=== PATIENT | female | born 1990 | race Caucasian/White ===

== ENCOUNTER 2024-01-13 00:18 | Day surgery (SDC) | payer OTHER, SELFPAY ==
[2024-01-10 11:44] VITALS: BMI 30.2
--- NOTE | 2024-01-10 11:50 | PC.NURSE ---
Report to the Outpatient Waiting Room, entrance under the green pavilion located off [facility], at time _0830_ on date _[id number]_. Planned Procedure Time: _1030_.? Time changes happen often and if your time is changed the preop area will call you the afternoon before. - You and your visitor will be asked to self-screen and do not enter if you have any COVID symptoms. Please call surgeon if you need to reschedule. - A mask is optional within the hospital at this time. Patients may have clear liquids (water, carbonated beverages, clear teas, apple juice) until 3 hours prior to surgery with a maximum of 20 ounces. - No food from midnight until time of surgery and no smoking Take only the following medications with a SIP of water on the morning of surgery: ____Escitalopram, Levothyroxine and if needed Lorazepam. DO NOT STOP ANY OF YOUR OTHER PRESCRIPTION MEDICATIONS PRIOR TO SURGERY EXCEPT THE FOLLOWING Medications to discontinue per physician None Please no make-up, nail cymro, hairspray, perfume, deodorant, or body powder the day of surgery.? No jewelry (including any body piercings) or valuables the day of surgery, leave them at home.? Please take a shower or bath the night before, or the morning of, surgery with an antibacterial soap.? Wear comfortable, loose fitting clothing.? - Jewelry must be removed prior to entering the operating room.? Rings and piercings that are not removed may be cut off. - The hospital will not accept responsibility for valuables.? - Please leave all valuables, including medications, at home the day of surgery. If you are going home after surgery, a licensed double bottom driver must drive you home.? - NO public transportation without another adult if you receive anesthesia. - We recommend that an adult stay with you for 24 hours following discharge. - We also recommend that you do not drive, make important decision, drink alcoholic beverages, or take any drugs that were not prescribed by your health care provider for at least 24 hours after your discharge time. Follow any additional instructions given to you from your surgeon. Telephone instructions given to _Kimberly_and asked if any additional questions and then verbalized understanding. Patient advised to call surgeon office or pre surgery nurse liaison [phone] if any additional questions.
[2024-01-13] VITALS (8 sets, daily range): BP systolic 120–130; BP diastolic 60–88; PULSE 62–110; RESP 12–20; O2SAT 96–100
[2024-01-13] MEDS: ACETAMINOPHEN 500 MG TABLET 1000 MG PO (09:00)
[2024-01-13] MEDS: KETOROLAC 15 MG/ML VIAL (*BKC) IV PUSH (09:15)
[2024-01-13] MEDS: LACTATED RINGERS 1,000 ML 30 ML IV CONT ×2 (09:30→11:00)
--- NOTE | 2024-01-13 09:31 | WPDHPUPDATE1 ---
History and Physical Update Update Date/Time: 01/13/24 09:31 History and Physical has been reviewed, including an updated exam of the patient. There are NO changes in the patient's condition. Risks, benefits, and alternatives have been discussed and questions answered. Patient agrees to proceed with procedure.
--- NOTE | 2024-01-13 09:44 | P.PNAN_ITS ---
Anes - Initial Pre Proc Eval Procedure: Operation Date: 01/13/24 10:30 Proposed Procedures p Hysteroscopy, Adriana Endometrial Ablation, Laparoscopic Bilateral Salpingectomy - Yamil Ruiz MD Date/Time: 01/13/24 09:44 Surgeon: Yamil Ruiz MD Pre Op Diagnosis: menorrhagia, sterilization Patient Data Age: 33 Gender: F Height: 1.57 m Weight: 75.3 kg Allergies Allergy/AdvReac Type Severity Reaction Status Date / Time No Known Allergies Allergy Verified 01/13/24 09:19 Home Medications Medication Instructions Recorded Confirmed Type cetirizine 10 mg tablet (All Day 10 mg PO DAILY 04/19/23 01/13/24 History Allergy (cetirizine)) levothyroxine 150 mcg capsule 150 mcg PO DAILY 04/19/23 01/13/24 History lorazepam 0.5 mg tablet 0.5 mg PO DAILY PRN Anxiety 04/19/23 01/13/24 History norethindrone acetate 1 mg-ethinyl 1 tablet PO DAILY 04/19/23 01/13/24 History estradiol 20 mcg tablet (Loestrin) phentermine 30 mg capsule 30 mg PO DAILY 04/19/23 01/13/24 History escitalopram oxalate 10 mg tablet 10 mg PO DAILY 01/10/24 01/13/24 History Patient hx anesthesia problems: none Family hx anesthesia problems: none Results Review: All pre-operative results and documents have been reviewed as part of the pre- operative evaluation. [facility] Past Medical History Medical History Anxiety Endometriosis Thyroid dysfunction Surgical History Surgical History History of cholecystectomy Hx of laparoscopy (~2013) endometriosis Social History Social History Smoking status: Never smoker Alcohol intake: current Substance use: never Lack of Transportation: No Lack of Food: Never True Current Housing: I Have Housing Concerned About Future Housing: No Difficulty Paying Gas/Electric Bills: No Difficulty Paying for Meds: No Currently Unemployed: No Living arrangements: with family Gender identity (if verbalized by the patient): Female Sexual Orientation (if Verbalized by the Patient): Straight or Heterosexual Spiritual care concerns: No Anes - Eval Final PreProcedure Day of Procedure 01/13/24 09:44 Patient weight: obese Heart: regular rate and rhythm Lungs: clear to auscultation Airway: Mallampati scale class II Neurological: alert and oriented Last oral intake: >/= 8 hours ASA classification: II Emergent: no Anesthetic plan: proceed Anesthesia type and monitoring: general ETT and standard monitoring Results Review: All pre-operative results and documents have been reviewed as part of the pre- operative evaluation. Informed Consent: The patient's anesthetic plan and its attendant risks and benefits were discussed with the patient/family/POA. Questions were solicited and answers provided to the satisfaction of the patient/family/POA.
[2024-01-13] MEDS: ceFAZolin 2 GM/D5W 50 ML 2 GM/50 ML BAG IVPB (10:00)
[2024-01-13] MEDS: BUPivacaine HCL 0.5% PF 30 ML VIAL INFILTRATE (10:26)
--- NOTE | 2024-01-13 11:22 | W.PM.PROC2 ---
Procedure Note - Detailed Date of Procedure 01/13/24 Pre-op Diagnosis menorrhagia, sterilization Post-op Diagnosis Same Procedure Performed 1. laparoscopic salpingectomy 3. Lysis of adhesions 2. Attempted Adriana endometrial ablation Surgeon Yamil Ruiz MD Anesthesia General Indications patient has satisfied parity desires permanent sterilization also has history of heavy periods which are controlled with control pills but with history of heavy bleeding and since she will be off control pills due to sterilization she requested endometrial ablation at the same time. Findings Uterus normal appearing, the left fallopian tube was mildly adhesed to the left sidewall the adhesions were lysed and the tube was then removed. The ovaries were normal appearing bilaterally. Uterus sound to 8 cm. Cervical length 4 cm during hysteroscopy the cavity was normal appearing. While attempting the Adriana endometrial ablation the arms would not deploy after several attempts therefore was unable to proceed with the ablation. Description of Procedure After informed consent was obtained patient was taken to the operating room and general endotracheal anesthesia was administered. She was placed in low lithotomy need prep prepped sterile fashion. Attention was turned to the vagina speculum inserted single-tooth tenaculum placed on anterior lip of the cervix. Reid uterine manipulator placed into the cervical canal. The speculum was removed. Attention was then turned to the abdomen. With sterile gloves a vertical incision was made at the umbilicus and a Veress needle was inserted into the abdomen. The pressure reading was high and veress needle removed and reinserted and then confirmation into the abdomen obtained with free flow of fluid and normal peritoneal pressures. A pneumoperitoneum of 15 mm per mercury was obtained. Patient was placed in Trendelenburg position. Attention was turned to the left side of the abdomen and a 5 mm port was inserted under laparoscopic visualization. The pelvic organs were visualized. The left proximal fallopian tube was ligated with the LigaSure. the distal fallopian tube was adhesed to the left sidewall and pericolic fat. Attention was turned to the right side of the abdomen and another 5 mm port was inserted under laparoscopic visualization. The adhesions on the left were lysed and the rest of the fallopian tube was mobile and was ligated from the broad ligament and removed through the port. Using the LigaSure the right fallopian tube was excised to near the entrance to the uterus. This was removed through the port. Hemostasis was noted at both sites. Patient was taken out of Trendelenburg position the pneumoperitoneum was released and the skin incisions were closed in a subcuticular fashion with 4 O Vicryl. Attention was turned to the vagina the acorn manipulator was removed. The uterus was sound to 8 cm cervix was dilated to a Perkins dilator cervical length was 4 cm. Uterine length 4 cm.The hysteroscope was inserted the cavity appeared normal. The Adriana was inserted and after several attempts the arms would not be dislodged. The hysteroscope was reinserted and there appeared to be some indention areas in the cavity on the sides no full perforation noted. No bleeding noted. The ablation attempt was stopped. hemostasis was noted at the tenaculum site the patient tolerated the procedure well was extubated in operating room and taken to recovery stable condition. Estimated Blood Loss 5 Drains No Packing No Pathology Yes ( Right and left fallopian tube) Complications No immediate complications Condition Stable Disposition Observation [facility] Billing Surgery - Charge Forward: Surgery Billing
[2024-01-13] MEDS: oxyCODONE HCL (*CRX) 5 MG TAB IR PO (12:26)
== END 2024-01-13 12:47 | disposition home or self-care (01) ==
PROVIDERS: PCP Nurse Practitioner; Visit Provider Obstetrics & Gynecology
PROC: 0UDB8ZZ Extraction of Endometrium, Via Natural or Artificial Opening Endoscopic (ICD-10-PCS; CPT 58558; principal; 2024-01-13 10:30)
DX: N92.0 Excessive and frequent menstruation with regular cycle (principal); Z30.2 Encounter for sterilization; N83.8 Other noninflammatory disorders of ovary, fallopian tube and broad ligament; F41.9 Anxiety disorder, unspecified; E07.9 Disorder of thyroid, unspecified; E66.9 Obesity, unspecified; Z68.30 Body mass index [BMI] 30.0-30.9, adult
CPT/HCPCS: 58661; 58563; 88302; A9270; J0330; J0690; J1100; J1885; J2250; J2405; J2704; J3010; J7120